=== PATIENT | male | born 1990 | race Caucasian/White ===

== ENCOUNTER 2021-07-11 23:19 | Emergency (ER) | payer SELFPAY ==
[~2021-07-11] VITALS: Ht 177.8 cm; Wt 98.0 kg
[2021-07-12] MEDS ORDERED: IBUPROFEN 600MG TABLET PO ONE (00:15)
[2021-07-12] MEDS ORDERED: NAPR-1176 MT (00:26)
[2021-07-12] MEDS ORDERED: ACET-2708 MT (00:26)
[2021-07-12 00:30] VITALS: BP 131/81
== END 2021-07-12 01:15 | disposition home or self-care (01) ==
LOC: ER 23:19
DX: S86.012A Strain of left Achilles tendon, initial encounter (principal); X58.XXXA Exposure to other specified factors, initial encounter; Y93.66 Activity, soccer; Y92.89 Other specified places as the place of occurrence of the external cause; Y99.8 Other external cause status
CPT/HCPCS: 29515; 99283